=== PATIENT | female | born 1960 | race Caucasian/White ===

== ENCOUNTER 2018-10-22 21:55 | Emergency (ER) | payer BC ==
[~2018-10-22] VITALS: Ht 154.9 cm; Wt 71.4 kg
[2018-10-22 21:58] VITALS: TEMP 97.9
[2018-10-22] MEDS ORDERED: LEVOXYL0.075 MG PO (22:10)
[2018-10-22] MEDS ORDERED: IMDUR 30MG30 MG/TAB PO (22:10)
[2018-10-22] MEDS ORDERED: PAXIL40 MG PO (22:11)
[2018-10-22] MEDS ORDERED: ATIVAN2 MG PO (22:11)
[2018-10-22] MEDS ORDERED: METHADONE H10 MG/TAB PO (22:12)
[2018-10-22] MEDS ORDERED: RANEXA 500MG T500 MG PO (22:12)
[2018-10-22] MEDS ORDERED: DAZIDOX20 MG PO (22:13)
[2018-10-22] MEDS ORDERED: KLOR-CON M2020 MEQ PO (22:13)
[2018-10-22] MEDS ORDERED: PREMARIN 0.60.625 M1 PO (22:14)
[2018-10-22] MEDS ORDERED: LASIX 40MG TABL40 MG PO (22:14)
[2018-10-22 22:31] LABS: COLLECTION METHOD CLEAN CATCH
[2018-10-22 22:35] LABS: BASO % 0.3 % (0.0-2.0); EOS % 0.7 % (0-4.0); GRAN # 3.6 (1.4-6.5); GRAN % 58.8 % (42.2-75.2); HEMATOCRIT 42.5 % (37.0-47.0); HEMOGLOBIN 14.6 g/dl (12.5-16.0); LYMPH # 2.1 (1.2-3.4); LYMPH % 34.5 % (20.0-51.0); MEAN CELL VOLUME 92 fl (80.0-100.0); MEAN CORPUSCULAR HEMOGLOBIN 32 pg (27.0-31.0); MEAN CORPUSCULAR HGB CONC 34 g/dl (33.0-37.0); MEAN PLATELET VOLUME 10.1 fl (7.4-10.4); MONO # 0.3 (0.1-0.6); MONO % 5.4 % (1.7-9.3); PLATELET COUNT 178 K/mm3 (130-400); RED BLOOD COUNT 4.61 M/mm3 (4.10-5.30); REDCELL DISTRIBUTION WIDTH-CV 12.8 % (11.5-14.5)
[2018-10-22 22:40] LABS: MUCOUS Present /lpf; PH 8 (5-8); SQUAMOUS EPITHELIAL 0-2 /hpf; URINE APPEARANCE Clear; URINE BACTERIA Rare /hpf; URINE BILIRUBIN Negative (NEGATIVE); URINE BLOOD Negative (NEGATIVE); URINE COLOR Straw; URINE GLUCOSE Negative (NEGATIVE); URINE KETONE Negative (NEGATIVE); URINE LEUKOCYTE ESTERASE Negative (NEGATIVE); URINE NITRATE Negative (NEGATIVE); URINE PROTEIN(semi-quant) Negative (NEGATIVE); URINE RBC 0-2 /hpf; URINE UROBILINOGEN Negative (NEGATIVE)
[2018-10-22 22:45] LABS: ALANINE AMINOTRANSFERASE 8 U/L (9-52); ALBUMIN 4.6 gm/dL (3.5-5.0); ALKALINE PHOSPHATASE 84 U/L (50-136); ANION GAP 9 mmol/L (7-16); AST,SGOT 25 U/L (15-37); BILIRUBIN,TOTAL 0.6 mg/dL (0.0-1.0); BLOOD UREA NITROGEN 10 mg/dL (7-17); CALCIUM 10.2 mg/dL (8.4-10.2); CARBON DIOXIDE 23 mmol/L (22-30); CHLORIDE 106 mmol/L (98-107); CREATININE, serum 0.67 (0.52-1.25); GLUCOSE 106 mg/dL (74-106); LIPASE 126 U/L (23-300); POTASSIUM 4.1 mmol/L (3.4-5.0); SODIUM 138 mmol/L (137-145); TOTAL PROTEIN 8.5 gm/dL (6.4-8.2)
[2018-10-22 22:56] LABS: TROPONIN-I < 0.012 ng/mL (0.000-0.035)
[2018-10-22] MEDS ORDERED: CATAPRES 0.1MG0.1 MG PO (23:14)
[2018-10-23 00:25] VITALS: BP 134/76; PULSE 67
== END 2018-10-23 00:25 | disposition home or self-care (01) ==
LOC: COL.ER 21:55
PROVIDERS: Emergency Medicine
DX: F11.23 Opioid dependence with withdrawal (principal); G89.29 Other chronic pain; M54.9 Dorsalgia, unspecified; I50.9 Heart failure, unspecified
CPT/HCPCS: J2270; J2405; J7030

== ENCOUNTER 2019-08-31 07:38 | Day surgery (SDC) | payer BC ==
[~2019-08-31] VITALS: Ht 157.5 cm; Wt 71.2 kg
[~2019-08-31 07:38] MED LIST: ATIVAN2 MG PO; CATAPRES 0.1MG0.1 MG PO; DAZIDOX20 MG PO; IMDUR 30MG30 MG/TAB PO; KLOR-CON M2020 MEQ PO; LASIX 40MG TABL40 MG PO; LEVOXYL0.075 MG PO; METHADONE H10 MG/TAB PO; PAXIL40 MG PO; PREMARIN 0.60.625 M1 PO; RANEXA 500MG T500 MG PO
[2019-08-31 07:57] VITALS: BP 117/79; PULSE 87; TEMP 97.5
[2019-08-31] MEDS ORDERED: MOBIC15 MG PO (08:36)
[2019-08-31] MEDS ORDERED: NEURONTIN600 MG/TAB PO (08:37)
[2019-08-31] MEDS ORDERED: K-TAB20 PO (08:38)
[2019-08-31] MEDS ORDERED: IMDUR 60MG60 MG/TAB PO (08:39)
[2019-08-31] MEDS ORDERED: BUSPAR DIVIDOSE15 MG PO (08:40)
[2019-08-31] MEDS ORDERED: SYNTHROID0.075 MG/T PO (08:40)
[2019-08-31] MEDS ORDERED: EFFEXOR100 MG PO (08:41)
[2019-08-31] MEDS ORDERED: RESTORIL 1515 MG/CAP PO (08:42)
[2019-08-31] MEDS ORDERED: SINEQUAN 5050 MG/CAP PO (08:42)
[2019-08-31] MEDS ORDERED: ASPIRIN 81M81 MG/TA2 PO (08:43)
[2019-08-31] MEDS ORDERED: VITAMIN D31000 I1 PO (08:44)
[2019-08-31] MEDS ORDERED: NATURAL MAGNES200 MG PO (08:45)
[2019-08-31] MEDS ORDERED: CALCIUM CARBON650 M2 PO (08:46)
[2019-08-31] MEDS ORDERED: MULTIPLE VITAMI1 TA5 PO (08:46)
[2019-08-31 09:30] VITALS: BP 116/78; PULSE 73
--- NOTE | 2019-08-31 09:30 | NUR ---
Patient returns to [facility] per cart and transfers from cart to recliner with two person assist. IV fluids continue to infuse and site is free of redness. Son in room. States that she feels like she has indigestion. Denies nausea. Allowed to rest. Call light in reach.
[2019-08-31 09:45] VITALS: BP 115/79; PULSE 61
--- NOTE | 2019-08-31 09:45 | NUR ---
More awake and denies further discomfort. Son in the room. Dr. Lezama in the room and all questions answered.
--- NOTE | 2019-08-31 09:50 | NUR ---
Eating toast and drinking water.
[2019-08-31 10:00] VITALS: BP 118/77; PULSE 69
--- NOTE | 2019-08-31 10:00 | NUR ---
Tolerated toast and water. States that she is ready to go home.
--- NOTE | 2019-08-31 10:05 | NUR ---
IV discontinued and patient is able to dress self. Given dismissal instructions and voices understanding of these.
--- NOTE | 2019-08-31 10:10 | NUR ---
Instructions signed and patient dismissed to home per private vehicle and taken to the front door per wheelchair and assisted into vehicle by this RN and dismissed to home with instructions in hand.
== END 2019-08-31 10:10 | disposition home or self-care (01) ==
LOC: SDCO 07:38
DX: Z12.11 Encounter for screening for malignant neoplasm of colon (principal); K63.89 Other specified diseases of intestine; K64.0 First degree hemorrhoids; I50.9 Heart failure, unspecified; M19.90 Unspecified osteoarthritis, unspecified site; G89.29 Other chronic pain; M54.9 Dorsalgia, unspecified; Z88.5 Allergy status to narcotic agent; Z95.0 Presence of cardiac pacemaker; E03.9 Hypothyroidism, unspecified; Z83.71 Family history of colonic polyps; Z86.010 Personal history of colon polyps; Z80.0 Family history of malignant neoplasm of digestive organs
CPT/HCPCS: J2704; J7120

== ENCOUNTER → 2021-03-23 | Outpatient (CLI) | payer BC ==
[~2021-03-23] MED LIST changes: +ASPIRIN 81M81 MG/TA2 PO; +BUSPAR DIVIDOSE15 MG PO; +CALCIUM CARBON650 M2 PO; +EFFEXOR100 MG PO; +IMDUR 60MG60 MG/TAB PO; +K-TAB20 PO; +MOBIC15 MG PO; +MULTIPLE VITAMI1 TA5 PO; +NATURAL MAGNES200 MG PO; +NEURONTIN600 MG/TAB PO; +RESTORIL 1515 MG/CAP PO; +SINEQUAN 5050 MG/CAP PO; +SYNTHROID0.075 MG/T PO; +VITAMIN D31000 I1 PO
== END ==
LOC: COL.RAD 08:00
DX: R10.13 Epigastric pain (principal)
CPT/HCPCS: A9541

== ENCOUNTER → 2021-06-14 | Outpatient (CLI) | payer BC | LOC: COL.RAD 09:53 | DX: K58.1 Irritable bowel syndrome with constipation (principal) ==

== ENCOUNTER → 2021-06-18 | Outpatient (CLI) | payer BC | LOC: COL.RAD 09:49 | DX: K58.1 Irritable bowel syndrome with constipation (principal) ==